=== PATIENT | female | born 1995 | race Caucasian/White ===

== ENCOUNTER 2019-02-14 18:26 | Emergency (ER) | payer OTHER ==
[~2019-02-14] VITALS: Ht 157.5 cm; Wt 72.6 kg
[2019-02-14 18:32] VITALS: Ht 157.5 cm; Wt 72.6 kg
[2019-02-14 19:34] VITALS: BP 115/78
== END 2019-02-14 19:34 | disposition home or self-care (01) ==
LOC: ED 18:26
DX: S39.012A Strain of muscle, fascia and tendon of lower back, initial encounter (principal); Z88.0 Allergy status to penicillin; V49.9XXA Car occupant (driver) (passenger) injured in unspecified traffic accident, initial encounter; Y93.I9 Activity, other involving external motion; Y92.413 State road as the place of occurrence of the external cause; Y99.8 Other external cause status